=== PATIENT | female | born 1995 ===

== ENCOUNTER 2021-12-13 07:11 | Inpatient (IN) | payer BC ==
[2021-12-13] MEDS ORDERED: Water For Irrigation,Sterile 1,000 ML Container IRR PRN (08:54)
[2021-12-13] MEDS ORDERED: Carboprost Tromethamine 250 MCG/1 ML Amp IM PRN (08:54)
[2021-12-13] MEDS ORDERED: Methylergonovine 0.2 MG/1 ML Amp IM PRN (08:54)
[2021-12-13] MEDS ORDERED: Sodium Chloride 0.9% 2.5 ML Syringe FLUSH PRN (08:54)
[2021-12-13] MEDS ORDERED: Tranexamic Acid 1,000 MG in Sodium Chloride 0.9% 100 ML IV PRN (08:54)
[2021-12-13] MEDS ORDERED: Sodium Chloride 0.9% 20 ML SDV IV PRN (08:54)
[2021-12-13] MEDS ORDERED: Ondansetron 4 MG/2 ML SDV IVPUSH PRN (08:54)
[2021-12-13] MEDS ORDERED: Misoprostol 200 MCG Tab PO PRN (08:54)
[2021-12-13] MEDS ORDERED: Lidocaine 1% 50 ML MDV INJECT PRN (08:54)
[2021-12-13] MEDS ORDERED: Sodium Chloride 0.9% 10 ML Syringe FLUSH PRN (08:54)
[2021-12-13] MEDS ORDERED: Oxytocin/0.9 % Sodium Chloride 30 UNIT/500 ML BAG IV SCH (09:00)
[2021-12-13] MEDS ORDERED: Ampicillin 2 GM in Sodium Chloride 0.9% 100 ML IV ONE (09:00)
[2021-12-13] MEDS: Lactated Ringers 1,000 ML IV SCH ×2 (09:32→20:32)
[2021-12-13] MEDS ORDERED: ePHEDrine 50 MG/ML SDV IVPUSH PRN ×2 (09:47)
[2021-12-13] MEDS ORDERED: Ropivacaine in NACL,ISO-OSM/PF 800 MG in Premix Bag 1 BAG EPIDUR SCH ×2 (10:00)
[2021-12-13] MEDS: Butorphanol 1 MG/ML SDV IVPUSH PRN ×3 (12:50→17:32)
[2021-12-13] MEDS: Ampicillin 1 GM in Sodium Chloride 0.9% 50 ML IV SCH ×3 (12:57→20:47)
[2021-12-13] MEDS ORDERED: Butorphanol 1 MG/ML SDV IM ONE (18:59)
[2021-12-13] MEDS ORDERED: Fluticasone NASAL Spray 16 GM Bottle NASBOTH SCH (19:00)
[2021-12-13] MEDS ORDERED: Lidocaine 2% with EPINEPHrine 1:200,000 20 ML SDV ONE (20:23)
[2021-12-13] MEDS: Calcium Carbonate 500 MG Tab.Chew PO PRN (22:32)
[2021-12-14] MEDS: Ampicillin 1 GM in Sodium Chloride 0.9% 50 ML IV SCH ×2 (01:00→13:26)
[2021-12-14] MEDS: Calcium Carbonate 500 MG Tab.Chew PO PRN (01:14)
[2021-12-14] MEDS ORDERED: Oxytocin/0.9 % Sodium Chloride 30 UNIT/500 ML BAG IV SCH (02:15)
[2021-12-14] MEDS ORDERED: Acetaminophen 500 MG Tab PO PRN ×3 (04:34)
[2021-12-14] MEDS ORDERED: Witch Hazel Medicated Pads 40/Jar TOP PRN ×2 (04:34)
[2021-12-14] MEDS ORDERED: Bisacodyl 10 MG Supp RECTAL PRN ×2 (04:34)
[2021-12-14] MEDS ORDERED: Docusate Sodium 100 MG Cap PO PRN ×2 (04:34)
[2021-12-14] MEDS ORDERED: Lanolin 100% Cream 7 GM Tube TOP PRN ×2 (04:34)
[2021-12-14] MEDS ORDERED: Benzocaine/Menthol 20%-0.5% Spray 78 GM Cannister TOP PRN ×2 (04:34)
[2021-12-14] MEDS ORDERED: oxyCODONE 5 MG Tab PO PRN ×2 (04:34)
[2021-12-14] MEDS ORDERED: Ibuprofen 800 MG Tab PO PRN (04:34)
[2021-12-14] MEDS ORDERED: Ibuprofen 400 MG Tab PO PRN (04:34)
[2021-12-14] MEDS: Ibuprofen 800 MG Tab PO PRN ×3 (07:26→20:32)
[2021-12-14] MEDS: Acetaminophen 500 MG Tab PO PRN (09:57)
[2021-12-15] MEDS: Acetaminophen 500 MG Tab PO PRN (00:51)
[2021-12-15] MEDS: Ibuprofen 800 MG Tab PO PRN ×2 (05:42→21:06)
[2021-12-16] MEDS: Acetaminophen 500 MG Tab PO PRN (02:21)
== END 2021-12-16 12:05 | disposition home or self-care (01) | DRG 560 ==
LOC: MW.OBCHECK 07:11 → MW.OB 07:12 → MW.OBCHECK 18:47 → OBSVTOIN 12-14 03:51 → MW.OB 12-14 10:27
PROVIDERS: ADMIT Obstetrics & Gynecology; ATTEND Obstetrics & Gynecology
PROC: 10E0XZZ Delivery of Products of Conception, External Approach (ICD-10-PCS; principal; 2021-12-14)
PROC: 3E0R3BZ Introduction of Anesthetic Agent into Spinal Canal, Percutaneous Approach (ICD-10-PCS; 2021-12-14)
PROC: 00HU33Z Insertion of Infusion Device into Spinal Canal, Percutaneous Approach (ICD-10-PCS; 2021-12-14)
DX: O42.00 Premature rupture of membranes, onset of labor within 24 hours of rupture, unspecified weeks of gestation (principal); Z37.0 Single live birth; O24.410 Gestational diabetes mellitus in pregnancy, diet controlled; Z3A.39 39 weeks gestation of pregnancy; Z20.822 Contact with and (suspected) exposure to COVID-19
CPT/HCPCS: 36415; 51702; 59025; 59409; 82947; 82950; 84112; 85014; 85018; 85027; 86592; 86850; 86900; 86901; A9270-GY; J0290; J0595; J2405; J2590; J7120; U0002